=== PATIENT | female | born 1975 | race Caucasian/White ===

== ENCOUNTER 2022-04-13 06:39 | Day surgery (SDC) | payer BC, OTHER ==
[~2022-04-13 06:39] MED LIST: Lactated Ringers 1,000 ML IV SCH; Lidocaine 1%/Sod Bicarbonate in NS 8.4% 1 ML Syringe IDERM PRN; Sodium Chloride 0.9% 10 ML Syringe FLUSH PRN; Sodium Chloride 0.9% 10 ML Syringe FLUSH SCH
[2022-04-13] MEDS ORDERED: Lactated Ringers 1,000 ML ONE (06:48)
[2022-04-13] MEDS ORDERED: fentaNYL 100 MCG/2 ML SDV ONE (06:48)
[2022-04-13] MEDS ORDERED: Rocuronium 50 MG/5 ML Vial ONE (06:48)
[2022-04-13] MEDS ORDERED: Propofol 200 MG/20 ML SDV ONE (06:48)
[2022-04-13] MEDS ORDERED: ceFAZolin 2 GM Vial ONE (06:48)
[2022-04-13] MEDS ORDERED: Ondansetron 4 MG/2 ML SDV ONE (06:48)
[2022-04-13] MEDS ORDERED: Dexamethasone 4 MG/ML 5 ML MDV ONE (06:48)
[2022-04-13] MEDS ORDERED: Ketorolac 30 MG/ML SDV ONE (06:48)
[2022-04-13] MEDS ORDERED: Midazolam 1 MG/ML 2 ML SDV ONE (06:49)
[2022-04-13] MEDS ORDERED: Sodium Chloride 0.9% 50 ML SDV ONE (06:55)
[2022-04-13] MEDS ORDERED: Bupivacaine 0.25%/EPINEPHrine 1:200,000 30 ML SDV ONE (07:06)
[2022-04-13] MEDS ORDERED: fentaNYL 100 MCG/2 ML SDV IVPUSH PRN (08:14)
[2022-04-13] MEDS ORDERED: ePHEDrine 50 MG/ML SDV IVPUSH PRN (08:14)
[2022-04-13] MEDS ORDERED: diphenhydrAMINE 50 MG/ML SDV IVPUSH PRN (08:14)
[2022-04-13] MEDS ORDERED: HYDROmorphone 0.5 MG/0.5 ML Syringe IVPUSH PRN (08:14)
[2022-04-13] MEDS ORDERED: Ondansetron 4 MG/2 ML SDV IVPUSH PRN ×2 (08:14→08:32)
[2022-04-13] MEDS ORDERED: Phenylephrine HCl In 0.9% NaCl 1 MG/10 ML Vial IVPUSH PRN (08:14)
[2022-04-13] MEDS ORDERED: ePHEDrine 50 MG/ML SDV ONE (08:16)
[2022-04-13] MEDS ORDERED: Neostigmine Methylsulfate 10 MG/10 ML MDV ONE (08:27)
[2022-04-13] MEDS ORDERED: Acetaminophen/oxyCODONE 325-5 MG Tab PO PRN (08:32)
[2022-04-13] MEDS ORDERED: Ketorolac 30 MG/ML SDV IVPUSH SCH (08:45)
[2022-04-13] MEDS ORDERED: Acetaminophen 325 MG Tab PO ONE (09:00)
[2022-04-13] MEDS ORDERED: Ibuprofen 600 MG Tab PO PRN (12:00)
[2022-04-13 12:28] VITALS: BP 100/63; PULSE 62
== END 2022-04-13 10:42 | disposition home or self-care (01) ==
LOC: JD.SDS 06:39
PROVIDERS: ATTEND Obstetrics & Gynecology
DX: N39.3 Stress incontinence (female) (male) (principal); N81.10 Cystocele, unspecified; Z98.890 Other specified postprocedural states; Z79.899 Other long term (current) drug therapy
CPT/HCPCS: 36415; 57288; 81003; 81025; 82565; 85025; A9270; C1771; J0690; J1100; J1885; J2250; J2405; J2704; J2710; J3010; J7120